=== PATIENT | female | born 1975 | race Caucasian/White ===

== ENCOUNTER 2022-04-07 11:08 | Outpatient (CLI) | payer SELFPAY ==
--- NOTE | 2022-04-07 11:30 | CRLHL7_ITS ---
For Patients: As a result of the Century Cures Act, medical imaging exams and procedure reports are released immediately into your electronic medical record. You may view this report before your referring provider. If you have questions, please contact your health care provider. BILATERAL SCREENING MAMMOGRAM WITH COMPUTER-AIDED DETECTION AND TOMOSYNTHESIS TECHNIQUE: CC and MLO views were obtained. These mammographic images have been obtained using full-field digital technique. These mammographic images were interpreted with the benefit of computer-aided detection. Breast Tomosynthesis was used in this interpretation. COMPARISON FILM: 01/20/21, 11/29/19, 07/19/18. FINDINGS: There are scattered areas of fibroglandular density IMPRESSION: There is no radiographic evidence for malignancy. ASSESSMENT: BI-RADS Category 1: Negative RECOMMENDATION: Routine screening mammogram in 1 year. A lay language report of this examination will be provided to the patient. Domenic Russell M.D. Diagnostic Radiologist [email or web address] Transcribed: 4:03 PM DW/Dictated by: Domenic Russell MD @ 04/08/2022 8:27:00 AM (Electronically Signed)
== END 2022-04-07 11:09 | disposition home or self-care (01) ==
LOC: MAMMO 11:09
PROVIDERS: PCP Internal Medicine; Visit Provider Internal Medicine
DX: Z12.31 Encounter for screening mammogram for malignant neoplasm of breast (principal)
CPT/HCPCS: 77063; 77067

== ENCOUNTER 2024-04-11 13:06 | Outpatient (CLI) | payer OTHER, SELFPAY ==
--- OUTSIDE RECORDS SUMMARY | 2024-04-11 13:38 | XMS_ITS | Referral Summary ---
Author Organization [place] Address [address] [facility] [place] [address] Care Team Providers Care Chief Compressor Station Engineer Name Role Phone No Ref-Primary, Physician Primary Care Provider Encounters Date Type Department Care Team Description 01/14/2024 Travel 01/14/2024 3:30 PM CDT Office Visit [facility] [address] [place] [address] Tricia Ramirez APRN CRNA Acute cystitis with hematuria (Primary Dx); Bacterial vaginitis; Vaginal discomfort; Dysuria from Last 3 Months Allergies Active Allergy Reactions Criticality Noted Date Comments Iodine Itching Medium 01/14/2024 Cephalexin Swelling High 01/14/2024 Latex Itching Low 01/14/2024 Penicillin G Swelling High 01/14/2024 Medications amLODIPine (NORVASC) 5 MG tablet Take 1 tablet by mouth daily at 2 pm. 12/30/2023 Active Active Problems No known active problems Social History Tobacco Use Types Packs/Day Years Used Date Smoking Tobacco: Never Assessed Comments Unknown Sex and Gender Information Value Date Recorded Sex Assigned at Not on file Legal Sex Female 2:55 PM CDT Gender Identity Not on file Sexual Orientation Not on file Last Filed Vital Signs Vital Sign Reading Time Taken Comments Blood Pressure 140/99 01/14/2024 3:43 PM CDT Pulse 84 01/14/2024 3:43 PM CDT Temperature 36.6 C (97.8 F) 01/14/2024 3:43 PM CDT Respiratory Rate 17 01/14/2024 3:43 PM CDT Oxygen Saturation 97% 01/14/2024 3:43 PM CDT Inhaled Oxygen Concentration - - Weight 68.5 kg (151 lb) 01/14/2024 3:43 PM CDT Height - - Body Mass Index - - Plan of Treatment Not on file Procedures Procedure Name Priority Date/Time Associated Diagnosis Comments URINE CULTURE Routine 01/14/2024 3:46 PM CDT Dysuria WET PREPARATION Routine 01/14/2024 3:46 PM CDT Vaginal discomfort URINE MICROSCOPIC EXAM Routine 01/14/2024 3:46 PM CDT Dysuria UA MACROSCOPIC WITH REFLEX TO MICRO AND CULTURE Routine 01/14/2024 3:46 PM CDT Dysuria from Last 3 Months Results * (ABNORMAL) UA Macroscopic with reflex to Microscopic and Culture - Clinic Collect (01/14/2024 3:46 PM CDT) Color Urine Yellow Colorless, Straw, Light Yellow, Yellow 01/14/2024 4:00 PM CDT CS LAB[facility]AT[facility] Appearance Urine Clear Clear 01/14/20 24 4:00 PM CDT [facility] Glucose Urine Negative Negative mg/dL 01/14/2024 4:00 PM CDT CS [facility] Bilirubin Urine Negative Negative 4:00 PM CDT [facility] Ketones Urine 40(A) Negative mg/dL 01/14/2024 4:00 PM CDT CS LAB[facility] Specific [place] Urine >=1.030 1.003 - 1.035 01/14/2024 4:00 PM CDT CS [facility] Blood Urine Trace(A) Negative 01/14/2024 4:00 PM CDT CS [facility] pH Urine 6.0 5.0 - 7.0 01/14/2024 4:00 PM CDT [facility] Protein Albumin Urine Trace(A) Negative mg/dL 01/14/2024 4:00 PM CDT CS [facility] Urobilinogen Urine 0.2 0.2, 1.0 E.U./dL 01/14/2024 4:00 PM CDT CS [facility] Nitrite Urine Negative Negative 01/14/2024 4:00 PM CDT CS LAB[facility] Leukocyte Esterase Urine Moderate(A) Negative 01/14/2024 4:00 PM CDT CS [facility] Urine URINE SPECIMEN OBTAINED BY CLEAN CATCH PROCEDURE / Unknown Non-blood Collection / Unknown 01/14/2024 3:46 PM CDT 01/14/2024 3:57 PM CDT Bartolo Keller PA-C LAB - URINE ORDERABLES Final Result Performing Organization Address [facility] de Phone Number LABORATORY [address], [address] * (ABNORMAL) Wet prep - Clinic Collect (01/14/2024 3:46 PM CDT) Trichomonas Absent Absent LYUBOV 01/14/2024 4:11 PM CDT CS LABORATORY Yeast Absent Absent LYUBOV 01/14/2024 4:11 PM CDT CS LAB[facility]AT[facility] Clue Cells Present(A) Absent LYUBOV 01/14/2024 4:11 PM CDT CS LAB[facility]ATORY WBCs/high power field 2+(A) None LYUBOV 01/14/2024 4:11 PM CDT CS [facility] Swab VAGINAL STRUCTURE / Unknown Non-blood Collection / Unknown 01/14/2024 3:46 PM CDT 01/14/2024 3:57 PM CDT Bartolo Keller PA-C LAB - MICRO GENERAL ORDERABL ES Final Result Performing Organization Address [facility]/ZIP Co de Phone Number LABORATORY [address], [address] * (ABNORMAL) Urine Microscopic Exam (01/14/2024 3:46 PM CDT) Bacteria Urine Few(A) None Seen /HPF LYUBOV 01/14/2024 4:07 PM CDT CS LAB[facility]ATORY RBC Urine 2-5(A) 0-2 /HPF /HPF LYUBOV 01/14/2024 4:07 PM CDT CS LAB[facility]ATORY WBC Urine >100(A) 0-5 /HPF /HPF LYUBOV 01/14/2024 4:07 PM CDT CS LAB[facility] Squamous Epithelials Urine Moderate( A) None Seen /LPF LYUBOV 01/14/2024 4:07 PM CDT CS LAB[facility]AT[facility] WBC Clumps Urine Present(A ) None Seen /HPF LYUBOV 01/14/2024 4:07 PM CDT CS LABORATORY Urine URINE SPECIMEN OBTAINED BY CLEAN CATCH PROCEDURE / Unknown Non-blood Collection / Unknown 01/14/2024 3:46 PM CDT 01/14/2024 3:57 PM CDT Bartolo Keller PA-C LAB - URINE ORDERABLES Final Result CS LABORATORY [facility] [address] [facility], [address] [place] [address] * Urine Culture (01/14/2024 3:46 PM CDT) Culture No Growth 01/15/2024 2:57 PM CDT [facility] Urine URINE SPECIMEN OBTAINED BY CLEAN CATCH PROCEDURE / Unknown Non-blood Collection / Unknown 01/14/2024 3:46 PM CDT 01/14/2024 3:59 PM CDT Bartolo Keller PA-C LAB - MICRO GENERAL ORDERABL ES Final Result [facility] Inf. Diseases Diag. Lab [address] [facility] [place] [address] from Last 3 Months Insurance [employer] IN[employer]ILY [employer]ANS [facility] INDIVIDUAL FAMILY PLANS Care Teams Chief Compressor Station Engineer Relationship Specialty Start Date End Date No Ref-Primary, Physician PCP - General 01/14/24
--- OUTSIDE RECORDS SUMMARY | 2024-04-11 13:38 | XMS_ITS | Clinical Summary ---
Author Organization [place] Address [address] [facility] [place] [address] Care Team Providers Care Pre Assembly Wirer Name Role Phone No Ref-Primary, Physician Primary Care Provider Allergies Active Allergy Reactions Criticality Noted Date Comments Iodine Itching Medium 01/14/2024 Cephalexin Swelling High 01/14/2024 Latex Itching Low 01/14/2024 Penicillin G Swelling High 01/14/2024 Medications amLODIPine (NORVASC) 5 MG tablet Take 1 tablet by mouth daily at 2 pm. 12/30/2023 Active Active Problems No known active problems Encounters Date Type Department Care Team Description 01/14/2024 3:30 PM CDT Office Visit [facility] [address] [place] [address] Tricia Ramirez, TALENT ACQUISITION PROJECT MANAGER CLINICAL DIRECTOR Acute cystitis with hematuria (Primary Dx); Bacterial vaginitis; Vaginal discomfort; Dysuria 01/14/2024 Travel from Last 3 Months Social History Tobacco Use Types Packs/Day Years [...] Mass Index - - Plan of Treatment Health Maintenance Due Date Last Done Comments ADVANCE CARE PLANNING 1976 ANNUAL REVIEW OF HM ORDERS 1976 CT COLONOGRAPHY 1976 FIT 1976 FLEX SIG 1976 GLUCOSE 1976 MAMMO SCREENING 1976 YEARLY PREVENTIVE VISIT 1976 sDNA (Cologuard) 1976 COLONOSCOPY 02/08/1986 COLORECTAL CANCER SCREENING 02/08/1986 HIV SCREENING 02/08/1991 HEPATITIS C SCREENING 02/08/1994 HEPATITIS B IMMUNIZATION (1 of 3 - 19+ 3-dose series) 02/08/1995 PAP 02/08/1997 LIPID 2016 DTAP/TDAP/TD IMMUNIZATION (2 - Td or Tdap) 01/06/2023 01/06/2013 PHQ-2 (once per calendar year) 2023 COVID-19 Vaccine (4 - 2023-2 5 season) 2024 03/25/2021, 08/28/2020, 07/31/2020 INFLUENZA VACCINE (#1) 2024 , 02/06/2013, 02/07/2009 RSV VACCINE (1 - 1-dose 75+ series) 02/08/2051 HPV IMMUNIZATION Aged Out No longer e ligible based on patient's age to complete this topic MENINGITIS IMMUNIZATION Aged Out No l onger eligible based on patient's age to complete this topic Pneumococcal Vaccine: Pediatrics (0 to 5 Years) and At-Risk Patients (6 to 64 Years) Aged Out No longer eligible b ased on patient's age to complete this topic RSV MONOCLONAL ANTIBODY Aged Out No l onger eligible based on patient's age to complete this topic Procedures Procedure Name Priority Date/Time Associated Diagnosis [...] 01/14/2024 4:00 PM CDT CS LABORATORY Specific [place] Urine >=1.030 1.003 - 1.035 01/14/2024 4:00 [...] 3:46 PM CDT 01/14/2024 3:57 PM CDT us Bartolo Keller PA-C LAB - URINE ORDERABLES Final Result LABORATORY [facility] - [facility] [address] [facility], [address] * (ABNORMAL) Wet prep - Clinic [...] - MICRO GENERAL ORDERABL ES Final Result CS LABORATORY [facility] [address] [facility], [address] * (ABNORMAL) Urine Microscopic Exam (01/14/2024 [...] - URINE ORDERABLES Final Result CS LABORATORY [facility] [place] [facility] [address] [facility], [address] [place] [address] * Urine Culture (01/14/2024 3:46 PM CDT) Culture No Growth 01/15/2024 2:57 PM CDT [facility]AT[facility] Urine URINE SPECIMEN OBTAINED BY CLEAN CATCH PROCEDURE / Unknown Non-blood Collection / Unknown 01/14/2024 3:46 PM CDT 01/14/2024 3:59 PM CDT us Bartolo Keller PA-C LAB - MICRO GENERAL ORDERABL ES Final Result [facility] LABORAT[facility] Inf. Diseases Diag. Lab [address] [facility] [place] [address], [facility] from Last 3 Months Insurance [facility] INDIVIDUAL FAMILY PLANS [facility] INDIVIDUAL FAMILY PLANS Care Teams Pre Assembly Wirer Relationship Specialty Start Date End Date No Ref-Primary, Physician PCP - General 01/14/24
--- OUTSIDE RECORDS SUMMARY | 2024-04-11 13:39 | XMS_ITS | Encounter Summary ---
Author Organization [place] Address [facility] [place] [address] Care Team Providers Care Team Lead Name Role Phone No Ref-Primary, Physician Primary Care Provider Encounter Details Date Type Department Care Team (Latest Contact Info) Description 01/14/2024 Travel Social History Tobacco Use Types Packs/Day Years Used Date Smoking Tobacco: Never Assessed Comments Unknown Sex and Gender Information Value Date Recorded Sex Assigned at Not on file Legal Sex Female 2:55 PM CDT Gender Identity Not on file Sexual Orientation Not on file documented as of this encounter Plan of Treatment Not on file documented as of this encounter Visit Diagnoses Not on filedocumented in this encounter Care Teams Team Lead Relationship Specialty Start Date End Date No Ref-Primary, Physician PCP - General 01/14/24 documented as of this encounter
--- OUTSIDE RECORDS SUMMARY | 2024-04-11 13:39 | XMS_ITS | Encounter Summary ---
Author Organization [place] Address [facility] [facility] [place] [address] Care Team Providers Care Car Checker Name Role Phone No Ref-Primary, Physician Primary Care Provider Reason for Visit * Reason Comments Urgent Care Pt resent with frequ ent, odor, pelvic pain when urinating, onset 3 weeks. Encounter Details Date Type Department Care Team (Late st Contact Info) Description 01/14/2024 3:30 PM CDT Office Visit [facility] [address] [place] [phone] Tricia Ramirez, MARINE FIREMAN POSITIVE PRINTER OPERATOR [address] [place], [place] [id number] Acute cystitis with hematuria (Primary Dx); Bacterial vaginitis; Vaginal discomfort; Dysuria Social History Tobacco Use Types Packs/Day Years Used Date Smoking Tobacco: Never Assessed Comments Unknown Sex and Gender Information Value Date Recorded Sex Assigned at Not on file Legal Sex Female 2:55 PM CDT Gender Identity Not on file Sexual Orientation Not on file documented as of this encounter Last Filed Vital Signs Vital Sign Reading [...] - - Body Mass Index - - documented in this encounter Patient Instructions * Attachments The following attachments cannot be sent through Care Everywhere. * Bacterial Vaginosis ([place]yan) * UTI (Urinary Tract Infection): Female ([place]) documented in this encounter Progress Notes * Tricia Ramirez APRN CNP - 01/14/2024 3:30 PM CDT Assessment & Plan 1. Acute cystitis with hematuria - nitroFURantoin macrocrystal-monohydrate (MACROBID) 100 MG capsule; Take 1 capsule (100 mg) by mouth 2 times daily for 5 days. Dispense: 10 capsule; Refill: 0 2. Bacterial vaginitis - metroNIDAZOLE (METROGEL) 0.75 % vaginal gel; Place 1 applicator (5 g) vaginally daily for 5 days.Dispense: 25 g; Refill: 0 3. Vaginal discomfort - Wet prep - Clinic Collect 4. Dysuria - UA Macroscopic with reflex to Microscopic and Culture - Clinic Collect - Urine Microscopic Exam - Urine Culture Home care reviewed. Patient verbalized understanding; will monitor symptoms closely. Reviewed s/e to medications. Follow up with primary care in 1 week if symptoms not improving. Handout given from [employer] and reviewed. Urine culture pending patient aware that this may change course of antibiotic. Discussed completingfull course of oral antibiotic to take this with food to avoid GI upset and to push fluids. Tricia Ramirez APRN CNP [facility] NAYANA Mendoza is a 48 year old female who presents to clinic today for the following health issues: Chief Complaint Patient presents with Urgent Care Pt resent with frequent, odor, pelvic pain when urinating, onset 3 weeks. HPI UTI Onset of symptoms was 1week(s). Course of illness is worsening Severity moderate Current and associated symptoms dysuria, frequency, urgency, and burning Treatment and measures tried Increase fluid intake and OTC advil or tylenol Predisposing factors include none Patient denies rigors, flank pain, temperature > 101 degrees F., vomiting, taking Coumadin, GFR less than 30 within the last year, and dyspareunia SUGAR REFINER Complaint Onset of symptoms was 2 week(s) ago. Course of illness is waxing and waning. Severity moderate Current and Associated symptoms: vaginal discharge described as clear, watery, mucoid, and mucopurulent Treatment measures tried include: None Sexually active: yes, single partner, contraception - none Predisposing factors: None Hx of previous symptom: none Review of Systems Constitutional, HEENT, cardiovascular, pulmonary, gi and gu systems are negative, except as otherwise noted. Objective BP (!) 140/99 Pulse 84 Temp 97.8 ??F (36.6 ??C) (Tympanic) Resp 17 Wt 68.5 kg (151 lb) SpO2 97% Physical Exam GENERAL: alert and no distress NECK: no adenopathy, no asymmetry, masses, or scars RESP: lungs clear to auscultation - no rales, rhonchi or wheezes CV: regular rate and rhythm, normal S1 S2, no S3 or S4, no murmur, click or rub, no peripheral edema ABDOMEN: soft, nontender, no hepatosplenomegaly, no masses and bowel sounds normal MS: no gross musculoskeletal defects noted, no edema BACK: no CVA tenderness, no paralumbar tenderness Results for orders placed or performed in visit on 01/14/24 UA Macroscopic with reflex to Microscopic and Culture - Clinic Collect Status: Abnormal Specimen: Urine, Clean Catch Result Value Ref Range Color Urine Yellow Colorless, Straw, Light Yellow, Yellow Appearance Urine Clear Clear Glucose Urine Negative Negative mg/dL Bilirubin Urine Negative Negative Ketones Urine 40 (A) Negative mg/dL Specific [place] Urine >=1.030 1.003 - 1.035 Blood Urine Trace (A) Negative pH Urine 6.0 5.0 - 7.0 Protein Albumin Urine Trace (A) Negative mg/dL Urobilinogen Urine 0.2 0.2, 1.0 E.U./dL Nitrite Urine Negative Negative Leukocyte Esterase Urine Moderate (A) Negative Urine Microscopic Exam Status: Abnormal Result Value Ref Range Bacteria Urine Few (A) None Seen /HPF RBC Urine 2-5 (A) 0-2 /HPF /HPF WBC Urine >100 (A) 0-5 /HPF /HPF Squamous Epithelials Urine Moderate (A) None Seen /LPF WBC Clumps Urine Present (A) None Seen /HPF Wet prep - Clinic Collect Status: Abnormal Specimen: Vagina; Swab Result Value Ref Range Trichomonas Absent Absent Yeast Absent Absent Clue Cells Present (A) Absent WBCs/high power field 2+ (A) None documented in this encounter Plan of Treatment Not on file documented as of this encounter Procedures Procedure Name Priority Date/Time Associated Diagnosis Comments UA MACROSCOPIC WITH REFLEX TO MICRO AND CULTURE Routine 01/14/2024 3:46 PM CDT Dysuria WET PREPARATION Routine 01/14/2024 3:46 PM CDT Vaginal discomfort URINE MICROSCOPIC EXAM Routine 01/14/2024 3:46 PM CDT Dysuria URINE CULTURE Routine 01/14/2024 3:46 PM CDT Dysuria documented in this encounter Results * Urine Culture (01/14/2024 3:46 PM CDT) Culture No Growth 01/15/2024 2:57 PM CDT [facility] LABORATORY Urine URINE SPECIMEN OBTAINED BY CLEAN CATCH PROCEDURE / Unknown Non-blood Collection / Unknown 01/14/2024 3:46 PM CDT 01/14/2024 3:59 PM CDT us Bartolo Keller PA-C LAB - MICRO GENERAL ORDERABL ES Final Result [facility] LABORATORY [facility] Inf. Diseases Diag. Lab [address] [facility], [address] [place] [address] * (ABNORMAL) Urine Microscopic Exam (01/14/2024 3:46 [...] URINE ORDERABLES Final Result Performing Organization Address [facility] Co de Phone Number LABORATORY [address], [address] * (ABNORMAL) Wet prep - Clinic [...] ORDERABL ES Final Result Performing Organization Address [facility] Co de Phone Number LABORATORY [address], [address] * (ABNORMAL) UA Macroscopic with reflex to [...] 01/14/2024 4:00 PM CDT CS LABORATORY Specific [place] Urine >=1.030 1.003 - 1.035 01/14/2024 4:00 [...] LAB - URINE ORDERABLES Final Result LABORATORY [facility] [address] [facility], [address] [place] [address] documented in this encounter Visit Diagnoses Diagnosis Acute cystitis with hematuria- Primary Acute cystitis Bacterial vaginitis Vaginitis and vulvovaginitis, unspecified Vaginal discomfort Unspecified symptom associated with female genital organs Dysuria documented in this encounter Care Teams Car Checker Relationship Specialty Start Date End Date No Ref-Primary, Physician PCP - General 01/14/24 documented as of this encounter
[2024-04-14 04:27] LABS: HPV Source Cervical; HPV, High Risk by TMA Not Detected
== END 2024-04-11 13:07 | disposition home or self-care (01) ==
PROVIDERS: PCP Internal Medicine; Visit Provider Internal Medicine
DX: I10 Essential (primary) hypertension (principal); E78.5 Hyperlipidemia, unspecified; Z12.4 Encounter for screening for malignant neoplasm of cervix; Z11.51 Encounter for screening for human papillomavirus (HPV); Z13.1 Encounter for screening for diabetes mellitus; Z13.6 Encounter for screening for cardiovascular disorders
CPT/HCPCS: 80061; 82947; 87624; 87625; 88141; 88142